=== PATIENT | female | born 1960 | race Caucasian/White ===

== ENCOUNTER 2017-05-22 20:27 | Inpatient (IN) ==
[2017-05-22] MEDS ORDERED: ASPIRIN 325 MG TABLET PO STA (21:14)
[2017-05-22] MEDS ORDERED: ALUM/MAG/SIMETH/LIDO VISC 1:1 30 ML BOTTLE PO STA (21:14)
[2017-05-22] MEDS ORDERED: ONDANSETRON 4 MG/2 ML VIAL IV STA (21:14)
[2017-05-22] MEDS ORDERED: HYDROmorphone 2 MG/1 ML VIAL IV STA (21:14)
[2017-05-22] MEDS ORDERED: NITROGLYCERIN 2% OINT 1 INCH/GM PACK TOP STA (21:14)
[2017-05-22] MEDS ORDERED: ASPIRIN 325 MG TABLET ONE (21:26)
[2017-05-22] MEDS ORDERED: ALUM/MAG/SIMETH/LIDO VISC 1:1 30 ML BOTTLE PO ONE (21:26)
[2017-05-22] MEDS ORDERED: NITROGLYCERIN 2% OINT 1 INCH/GM PACK TOP ONE (21:26)
[2017-05-22] MEDS ORDERED: ONDANSETRON 4 MG/2 ML VIAL ONE (21:26)
[2017-05-22] MEDS ORDERED: HYDROmorphone 2 MG/1 ML VIAL ONE (21:26)
[2017-05-22 21:30] LABS: Basophils % 0.4 % (0.0-0.8); Eosinophils # 0.2 10*3/uL (0.0-0.87); Eosinophils % 2.6 % (0.00-10.9); Hematocrit 42.4 VOL% (35.7-47.0); Hemoglobin 13.8 GM/DL (12.0-16.0); Immature Granulocytes % 0.3 %; Immature Granulocytes Absolute 0.02 #; Lymphocytes # 3.8 10*3/uL (1.4-4.0); Lymphocytes % 52.8 % (21.3-54.2); Mean Corpuscular HGB Conc 32.5 GM/DL (32-36); Mean Corpuscular Hemoglobin 31 PG (27-34); Mean Corpuscular Volume 93.6 FL (87-102); Mean Platelet Volume 12.5 FL (9.6-12.0); Monocytes # 0.7 10*3/uL (0.11-0.8); Monocytes % 9.8 % (1.7-12.7); Neutrophils # 2.5 10*3/uL (1.4-7.4); Neutrophils % 34.1 % (38.7-73.9); Platelet Count 200 T/CUMM (130-400); Red Blood Count 4.53 MC/CUMM (3.8-5.5); Red Cell Distribution Width 12.6 % (9.3-17.3); White Blood Count 7.3 T/CUMM (4-12)
[2017-05-22 21:45] LABS: INR 0.9; PT Patient Result 9.5 SECS
[2017-05-22 21:48] LABS: Alanine Aminotransferase 61 U/L (13-56); Alkaline Phosphatase 118 U/L (45-117); Aspartate Amino Transferase 37 U/L (0-37); Bilirubin,Total < 0.39 MG/DL (0.2-1.0); Blood Urea Nitrogen 9 MG/DL (7-18); Calcium 9.4 MG/DL (8.5-10.1); Glucose 89 MG/DL (74-106); Osmolality,Calculated 278.3 MOS/KG (273-304); Sodium 141 MMOL/L (136-145); Total Protein 7.6 G/DL (6.4-8.3)
[2017-05-22 22:40] LABS: Apearance,Urine CLEAR (Clear); Bilirubin,Urine Negative (Negative); Blood, Urine Small mg/dL (Negative); Glucose,Urine (UA) Negative (Negative); Ketones,Urine Negative (Negative); Nitrite,Urine Negative (Negative); Protein,Urine Negative; RBC,Urine 1 /HPF (0-4); Squamous Epithelial Cell,Urine Occasional /HPF (0-10); Urine Color Straw (Yellow); Urine Specific Gravity 1.006 (1.001-1.035); Urine Urobilinogen < 2.0 EU/DL (0.2-1.0); WBC,Urine 1 /HPF (0-6)
[2017-05-22] MEDS ORDERED: methylPREDNISolone SOD SUC 125 MG/2 ML VIAL ONE (23:36)
[2017-05-22] MEDS ORDERED: diphenhydrAMINE 50 MG/1 ML VIAL ONE (23:37)
[2017-05-22] MEDS ORDERED: FAMOTIDINE 20 MG/2 ML VIAL IV ONE (23:37)
[2017-05-22] MEDS ORDERED: methylPREDNISolone SOD SUC 125 MG/2 ML VIAL IV ONE (23:52)
[2017-05-22] MEDS ORDERED: diphenhydrAMINE 50 MG/1 ML VIAL IV ONE (23:53)
[2017-05-22] MEDS ORDERED: FAMOTIDINE 20 MG/2 ML VIAL IV STA (23:55)
[2017-05-23] MEDS ORDERED: MAGNESIUM SULF RIDER 2 GM in PREMIX 1 EACH IV PRN (00:08)
[2017-05-23] MEDS ORDERED: ONDANSETRON 4 MG/2 ML VIAL IV PRN (00:08)
[2017-05-23] MEDS ORDERED: MAGNESIUM SULF RIDER 4 GM in PREMIX 1 EACH IV PRN (00:08)
[2017-05-23] MEDS ORDERED: POTASSIUM CHLORIDE 20 MEQ TABLET PO PRN (00:08)
[2017-05-23] MEDS ORDERED: SODIUM CHLORIDE 0.9% 1,000 ML IV SCH (00:08)
[2017-05-23 01:52] LABS: Basophils # 0.1 10*3/uL (0.0-0.2); Basophils % 0.6 % (0.0-0.8); Eosinophils % 0.4 % (0.00-10.9); Hematocrit 39.6 VOL% (35.7-47.0); Hemoglobin 12.9 GM/DL (12.0-16.0); Immature Granulocytes % 0.5 %; Immature Granulocytes Absolute 0.04 #; Lymphocytes # 1.5 10*3/uL (1.4-4.0); Lymphocytes % 17.8 % (21.3-54.2); Mean Corpuscular HGB Conc 32.6 GM/DL (32-36); Mean Corpuscular Hemoglobin 31 PG (27-34); Mean Corpuscular Volume 94.5 FL (87-102); Mean Platelet Volume 12.1 FL (9.6-12.0); Monocytes # 0.4 10*3/uL (0.11-0.8); Monocytes % 5.2 % (1.7-12.7); Neutrophils # 6.3 10*3/uL (1.4-7.4); Neutrophils % 75.5 % (38.7-73.9); Platelet Count 184 T/CUMM (130-400); Red Blood Count 4.19 MC/CUMM (3.8-5.5); Red Cell Distribution Width 12.5 % (9.3-17.3); White Blood Count 8.3 T/CUMM (4-12)
[2017-05-23 02:30] LABS: Alanine Aminotransferase 58 U/L (13-56); Albumin 3.7 G/DL (3.4-5.0); Alkaline Phosphatase 93 U/L (45-117); Aspartate Amino Transferase 24 U/L (0-37); Bilirubin,Total < 0.39 MG/DL (0.2-1.0); Blood Urea Nitrogen 12 MG/DL (7-18); Calcium 8.8 MG/DL (8.5-10.1); Cholesterol 249 MG/DL (50-200); Glucose 127 MG/DL (74-106); HDL Cholesterol 56 MG/DL (40-60); Osmolality,Calculated 284.1 MOS/KG (273-304); Potassium 4.4 MMOL/L (3.5-5.1); Risk Ratio 4.45; Sodium 142 MMOL/L (136-145); Total Protein 6.8 G/DL (6.4-8.3); Triglycerides 142 MG/DL (2-150); VLDL CHOLESTEROL 28.4 MG/DL
[2017-05-23] MEDS: ENOXAPARIN 80 MG/0.8 ML SYRINGE SUBCUT SCH ×2 (03:28→13:01)
[2017-05-23] MEDS ORDERED: ASPIRIN EC 81 MG TABLET PO SCH (09:00)
[2017-05-23] MEDS ORDERED: PANTOPRAZOLE 40 MG TABLET PO SCH ×2 (09:00)
[2017-05-23] MEDS ORDERED: diphenhydrAMINE CAP 50 MG CAPSULE PO ONE (12:50)
[2017-05-23] MEDS ORDERED: DIAZEPAM 5 MG TABLET PO ONE (12:51)
[2017-05-23] MEDS ORDERED: HEPARIN/NACL 0.9% 2 UNITS/ML 1,000 ML IV ONE (13:10)
[2017-05-23] MEDS ORDERED: LIDOCAINE 1%/EPI INJ 20 ML VIAL ONE (13:24)
[2017-05-23] MEDS ORDERED: fentaNYL 100 MCG/2 ML VIAL ONE (13:32)
[2017-05-23] MEDS ORDERED: ASPIRIN 325 MG TABLET ONE (13:39)
[2017-05-23] MEDS ORDERED: MIDAZOLAM 2 MG/2 ML VIAL ONE (13:42)
[2017-05-23 18:46] VITALS: BP 119/56
[2017-05-23] MEDS ORDERED: ATORVASTATIN 40 MG TABLET PO SCH (21:00)
== END 2017-05-23 08:00 | disposition home or self-care (01) | DRG 287 ==
LOC: N.ED 20:27 → N.EDINP 22:36 → N.TELES 23:33
PROVIDERS: ADMIT Internal Medicine Cardiovascular Disease; ATTEND Internal Medicine Cardiovascular Disease
PROC: CLCCHCL (ICD-10-PCS; 2017-05-23 16:45)

== ENCOUNTER 2019-04-07 12:03 | Observation (INO) ==
[2019-04-07] MEDS ORDERED: NITROGLYCERIN 2% OINT 1 INCH/GM PACK TOP STA (12:30)
[2019-04-07] MEDS ORDERED: ENOXAPARIN 100 MG/ML SYRINGE SUBCUT STA (12:30)
[2019-04-07] MEDS ORDERED: ASPIRIN 325 MG TABLET PO STA (12:30)
[2019-04-07 12:50] LABS: Albumin 3.4 G/DL (3.4-5.0); Bilirubin,Total 0.4 MG/DL (0.2-1.0); Calcium 9.2 MG/DL (8.5-10.1); Osmolality,Calculated 272.7 MOS/KG (273-304); Total Protein 7.9 G/DL (6.4-8.3)
[2019-04-07 13:47] LABS: Basophils % 0.5 % (0.0-0.8); Eosinophils # 0.1 10*3/uL (0.0-0.87); Eosinophils % 1.3 % (0.00-10.9); Hematocrit 43.5 VOL% (35.7-47.0); Hemoglobin 13.7 GM/DL (12.0-16.0); Immature Granulocytes % 0.5 %; Immature Granulocytes Absolute 0.03 #; Lymphocytes # 2.4 10*3/uL (1.4-4.0); Lymphocytes % 38.5 % (21.3-54.2); Mean Corpuscular HGB Conc 31.5 GM/DL (32-36); Mean Corpuscular Volume 94.6 FL (87-102); Mean Platelet Volume 11.7 FL (9.6-12.0); Monocytes % 8.4 % (1.7-12.7); Neutrophils % 50.8 % (38.7-73.9); Platelet Count 210 T/CUMM (130-400); Red Cell Distribution Width 12.6 % (9.3-17.3); White Blood Count 6.1 T/CUMM (4-12)
[2019-04-07 13:57] LABS: INR 0.9; PT Patient Result 9.9 SECS (9.6-12.2); Partial Thromboplastin Time 25.2 SECS (20.8-36.0)
[2019-04-07] MEDS ORDERED: ONDANSETRON 4 MG/2 ML VIAL IV PRN (15:02)
[2019-04-07] MEDS ORDERED: MAGNESIUM SULF RIDER 4 GM in PREMIX 1 EACH IV PRN (15:02)
[2019-04-07] MEDS ORDERED: DOCUSATE SODIUM 100 MG CAPSULE PO PRN (15:02)
[2019-04-07] MEDS ORDERED: diphenhydrAMINE CAP 25 MG CAPSULE PO PRN (15:02)
[2019-04-07] MEDS ORDERED: SIMETHICONE CHEW 125 MG TABLET PO PRN (15:02)
[2019-04-07] MEDS ORDERED: ZALEPLON 5 MG CAPSULE PO PRN (15:02)
[2019-04-07] MEDS ORDERED: MAGNESIUM SULF RIDER 2 GM in PREMIX 1 EACH IV PRN (15:02)
[2019-04-07] MEDS ORDERED: KETOROLAC 30 MG/1 ML VIAL IV STA (15:08)
[2019-04-07] MEDS ORDERED: ACETAMINOPHEN 325 MG TABLET PO ONE (15:09)
[2019-04-07] MEDS: HYOSCYAMINE 0.125 MG TABLET SL SCH ×2 (18:07→20:56)
[2019-04-07] MEDS: METOPROLOL TARTRATE 25 MG TABLET PO SCH ×2 (18:34→20:55)
[2019-04-07] MEDS: KETOROLAC 30 MG/1 ML VIAL IV SCH (20:56)
[2019-04-07] MEDS: ACETAMINOPHEN 325 MG TABLET PO SCH (20:56)
[2019-04-07] MEDS: PANTOPRAZOLE 40 MG TABLET PO SCH (20:56)
[2019-04-07] MEDS ORDERED: ENOXAPARIN 80 MG/0.8 ML SYRINGE SUBCUT ONE (23:00)
[2019-04-07 23:45] LABS: Apearance,Urine Slightly Hazy (Clear); Bilirubin,Urine Negative (Negative); Blood, Urine Small mg/dL (Negative); Glucose,Urine (UA) Negative (Negative); Ketones,Urine Negative (Negative); Mucus,Urine Few /LPF (Occasional); Nitrite,Urine Negative (Negative); Protein,Urine Negative; RBC,Urine 3 /HPF (0-4); Squamous Epithelial Cell,Urine Few /HPF (0-10); Urine Color Yellow (Yellow); Urine Urobilinogen < 2.0 EU/DL (0.2-1.0); WBC,Urine 3 /HPF (0-6)
[2019-04-08 05:35] LABS: Basophils % 0.5 % (0.0-0.8); Eosinophils # 0.2 10*3/uL (0.0-0.87); Hematocrit 40.1 VOL% (35.7-47.0); Hemoglobin 12.7 GM/DL (12.0-16.0); Immature Granulocytes % 0.2 %; Immature Granulocytes Absolute 0.01 #; Lymphocytes # 2.9 10*3/uL (1.4-4.0); Lymphocytes % 49.8 % (21.3-54.2); Mean Corpuscular HGB Conc 31.7 GM/DL (32-36); Mean Platelet Volume 12.2 FL (9.6-12.0); Monocytes % 9.9 % (1.7-12.7); Neutrophils % 36.6 % (38.7-73.9); Platelet Count 194 T/CUMM (130-400); Red Blood Count 4.22 MC/CUMM (3.8-5.5); Red Cell Distribution Width 12.8 % (9.3-17.3); White Blood Count 5.8 T/CUMM (4-12)
[2019-04-08 05:57] LABS: Albumin 3.1 G/DL (3.4-5.0); Bilirubin,Total 0.5 MG/DL (0.2-1.0); Calcium 8.7 MG/DL (8.5-10.1); Osmolality,Calculated 280.3 MOS/KG (273-304); Total Protein 6.7 G/DL (6.4-8.3)
[2019-04-08 06:08] LABS: Eosinophils 2 % (0-10)
[2019-04-08 06:10] LABS: Band Neutrophils 2 % (0-10); Lymphocytes 50 % (20-55); Platelet Estimate Normal; Reactive Lymphocytes 1+; Segmented Neutrophils 39 % (50-85); Total Cells Counted 100
[2019-04-08 08:25] VITALS: BP 117/61
[2019-04-08] MEDS: ACETAMINOPHEN 325 MG TABLET PO SCH (08:53)
[2019-04-08] MEDS: METOPROLOL TARTRATE 25 MG TABLET PO SCH (08:54)
[2019-04-08] MEDS: HYOSCYAMINE 0.125 MG TABLET SL SCH (08:54)
[2019-04-08] MEDS: KETOROLAC 30 MG/1 ML VIAL IV SCH (08:54)
[2019-04-08] MEDS: PANTOPRAZOLE 40 MG TABLET PO SCH (08:54)
[2019-04-08] MEDS ORDERED: ESTRADIOL 1 MG TABLET PO SCH (09:00)
[2019-04-08] MEDS ORDERED: EZETIMIBE 10 MG TABLET PO SCH (09:00)
[2019-04-08] MEDS ORDERED: ASPIRIN EC 81 MG TABLET PO SCH (09:00)
== END 2019-04-08 11:25 | disposition home or self-care (01) ==
LOC: N.EDINP 12:03 → N.ED 12:03 → N.TELEN 16:15
PROVIDERS: ADMIT Internal Medicine Cardiovascular Disease; ATTEND Internal Medicine Cardiovascular Disease